=== PATIENT | male | born 1970 | race Caucasian/White ===

== ENCOUNTER → 2023-07-06 | Outpatient (CLI) | payer SELFPAY ==
[~2023-07-06] MED LIST: ALBIPROI INH; ALBU.083IS IH; ALBU90OI; ALBU90OI INH; ALPR.25 PO; AUGMENTIN; BUPR1 PO; CARI350 PO; DIAZ5 PO; EFFEXOR 150 MG QD; HYDACE5 PO; LORA1 PO; META800 PO; METH10 PO; METHADONE 20 MG; METHADONE PO; NAPR220; NAPR500 PO; NAPR550 PO; OXYACE7.5T PO; PRED20 PO; PROACE100; RXHYDACE PO; RXHYDGUAS PO; TRAZ50 PO; TRIAOI IH
[2023-07-10 22:57] LABS: TESTOSTERONE, FREE BY DIALYSIS 87.9 pg/mL (47.0-244.0); TESTOSTERONE, TOTAL MASS SPEC 443.3 ng/dL (300.0-890.0)
== END | disposition home or self-care (01) ==
LOC: LAB SHORT 18:58
PROVIDERS: Nurse Practitioner Family
DX: E29.1 Testicular hypofunction (principal)
CPT/HCPCS: 84402; 84403

== ENCOUNTER → 2024-03-27 | Outpatient (CLI) | payer BC ==
[2024-04-02 10:00] LABS: TESTOSTERONE, FREE BY DIALYSIS 92.7 pg/mL (47.0-244.0); TESTOSTERONE, TOTAL MASS SPEC 402.4 ng/dL (300.0-890.0)
== END ==
LOC: LAB SHORT 08:03 → LAB 08:03
PROVIDERS: Nurse Practitioner Family
DX: E29.1 Testicular hypofunction (principal)
CPT/HCPCS: 84402; 84403